=== PATIENT | female | born 1945 | race Caucasian/White ===

== ENCOUNTER → 2017-04-04 | Outpatient (CLI) | payer MEDICARE, OTHER ==
[~2017-04-04] MED LIST: CALC500T54 PO; LOSA25TA4 PO; LOSA50TA2 PO; METR250T PO; MULT-91 PO; NITR100C62 PO; OMEP20TA8 PO
--- NOTE | 2017-04-05 09:53 | RAD ---
EXAM: MAMMO PARMINDER SCREENING BILATERAL. HISTORY: Screening. COMPARISON: 04/03/2016, 03/18/2015, and 01/14/2014. FINDINGS: 2-D and 3-D tomosynthesis mammograms were obtained of both breasts in the CC and MLO projections. Computer-aided detection (CAD) was utilized. The breast parenchyma is heterogeneously dense, which could reduce sensitivity of mammography. Breast parenchyma level C. No dominant suspicious mass, suspicious microcalcifications, or architectural distortion is identified. Scattered, benign-appearing calcifications are present in both breasts. IMPRESSION: No mammographic evidence of malignancy. BI-RADS CATEGORY: 2 BENIGN FINDING RECOMMENDED FOLLOW-UP: 12M 12 MONTH FOLLOW-UP PQRS compliance statement: Patient information was entered into a reminder system with a target due date for the next mammogram. Mammography is a sensitive method for finding small breast cancers, but it does not detect them all and is not a substitute for careful clinical examination. A negative mammogram does not negate a clinically suspicious finding and should not result in delay in biopsying a clinically suspicious abnormality. "Our facility is accredited by the [employer] Mammography [employer]."
== END | disposition home or self-care (01) ==
LOC: MAMMO 12:42
PROVIDERS: ATTEND General Practice
DX: Z12.31 Encounter for screening mammogram for malignant neoplasm of breast (principal)
CPT/HCPCS: 77063; G0202; 77067

== ENCOUNTER → 2017-05-09 | Outpatient (CLI) | payer MEDICARE, OTHER ==
--- NOTE | 2017-05-09 15:14 | RAD ---
Indication wrist pain. Arthritis. Fall. AP lateral and oblique views of the left wrist were obtained as well as a navicular view. No acute finding is seen. There is probable bony demineralization. Significant degenerative changes are not seen particularly given the patient's age
== END | disposition home or self-care (01) ==
LOC: DXRADRC 14:49
PROVIDERS: ATTEND General Practice
DX: S63.502A Unspecified sprain of left wrist, initial encounter (principal); M19.032 Primary osteoarthritis, left wrist; W19.XXXA Unspecified fall, initial encounter; Y93.89 Activity, other specified; Y92.89 Other specified places as the place of occurrence of the external cause; Y99.8 Other external cause status
CPT/HCPCS: 73110

== ENCOUNTER → 2018-04-08 | Outpatient (CLI) | payer MEDICARE, OTHER ==
[~2018-04-08] MED LIST changes: +MULT-223 PO; -MULT-91 PO
--- NOTE | 2018-04-08 11:51 | RAD ---
DATE: 04/08/2018 EXAM: MAMMO PARMINDER SCREENING BILATERAL HISTORY: Routine screening COMPARISON: 04/04/2017 This study was interpreted with the benefit of Computerized Aided Detection (CAD). The breast parenchyma is heterogeneously dense, which could reduce sensitivity of mammography. Breast parenchyma level C. FINDINGS: 2-D and 3-D tomosynthesis imaging was performed in CC and MLO projections. The fibroglandular tissues are heterogeneous and nodular in character. No new or spiculated breast densities are seen. No architectural distortion is evident. Benign type calcifications are present. No suspicious microcalcifications have developed. IMPRESSION: Stable mammograms without evidence of malignancy. BI-RADS CATEGORY: 2 BENIGN FINDING(S) RECOMMENDED FOLLOW-UP: 12M 12 MONTH FOLLOW-UP PQRS compliance statement: Patient information was entered into a reminder system with a target due date for the next mammogram. Mammography is a sensitive method for finding small breast cancers, but it does not detect them all and is not a substitute for careful clinical examination. A negative mammogram does not negate a clinically suspicious finding and should not result in delay in biopsying a clinically suspicious abnormality. "Our facility is accredited by the [employer] Mammography [employer]."
== END | disposition home or self-care (01) ==
LOC: MAMMO 09:28
PROVIDERS: ATTEND General Practice
DX: Z12.31 Encounter for screening mammogram for malignant neoplasm of breast (principal)
CPT/HCPCS: 77063; 77067

== ENCOUNTER → 2019-04-15 | Outpatient (CLI) | payer MEDICARE, OTHER ==
[~2019-04-15] MED LIST changes: +LOSA25TA11 PO; -LOSA25TA4 PO; -LOSA50TA2 PO; +LOSA50TA86 PO; -MULT-223 PO; +MULT-629 PO
--- NOTE | 2019-04-15 14:33 | RAD ---
DATE: 04/15/2019 EXAM: MAMMO PARMINDER SCREENING BILATERAL HISTORY: Routine screening COMPARISON: 04/08/2018 This study was interpreted with the benefit of Computerized Aided Detection (CAD). Breast Density: HETERO The breast parenchyma is heterogenously dense, which could reduce sensitivity of mammography. Breast parenchyma level C. FINDINGS: 2-D and 3-D tomosynthesis imaging was performed in CC and MLO projections. The fibroglandular tissues are heterogeneous and multinodular in character. No new or enlarging breast densities are seen. Benign type calcifications are present. No suspicious microcalcifications have developed. IMPRESSION: Stable mammograms without evidence of malignancy. BI-RADS CATEGORY: 2 BENIGN FINDING(S) RECOMMENDED FOLLOW-UP: 12M 12 MONTH FOLLOW-UP PQRS compliance statement: Patient information was entered into a reminder system with a target due date for the next mammogram. Mammography is a sensitive method for finding small breast cancers, but it does not detect them all and is not a substitute for careful clinical examination. A negative mammogram does not negate a clinically suspicious finding and should not result in delay in biopsying a clinically suspicious abnormality. "Our facility is accredited by the [employer] Mammography [employer]."
== END | disposition home or self-care (01) ==
LOC: MAMMO 11:18
PROVIDERS: ATTEND General Practice
DX: Z12.31 Encounter for screening mammogram for malignant neoplasm of breast (principal); N64.89 Other specified disorders of breast
CPT/HCPCS: 77063; 77067

== ENCOUNTER → 2020-04-26 | Outpatient (CLI) | payer MEDICARE, OTHER ==
--- NOTE | 2020-04-27 12:53 | RAD ---
DATE: 04/26/2020 9:57 AM EXAM: MAMMO PARMINDER SCREENING BILATERAL HISTORY: Screening COMPARISON: 04/15/2019, 04/08/2018 Bilateral CC and MLO views of the breasts were performed. Bilateral breast tomosynthesis was performed in CC and MLO projections. This study was interpreted with the benefit of Computerized Aided Detection (CAD). FINDINGS: Breast Density: HETERO The breast parenchyma Is heterogeneously dense, which could reduce sensitivity of mammography. Breast parenchyma level C No suspicious masses, microcalcifications or architectural distortion is present to suggest malignancy in either breast. The visualized axillae are unremarkable. IMPRESSION: No mammographic evidence of malignancy. BI-RADS CATEGORY: 1 NEGATIVE RECOMMENDED FOLLOW-UP: 12M 12 MONTH FOLLOW-UP Annual screening mammography is recommended, unless clinically indicated sooner based on symptoms or change in physical exam. PQRS compliance statement: Patient information was entered into a reminder system with a target due date 04/27/2021 for the next mammogram. Mammography is a sensitive method for finding small breast cancers, but it does not detect them all and is not a substitute for careful clinical examination. A negative mammogram does not negate a clinically suspicious finding and should not result in delay in biopsying a clinically suspicious abnormality. "Our facility is accredited by the [employer] Mammography [employer]."
== END | disposition home or self-care (01) ==
LOC: MAMMO 09:25
PROVIDERS: ATTEND Internal Medicine Hematology & Oncology
DX: Z12.31 Encounter for screening mammogram for malignant neoplasm of breast (principal)
CPT/HCPCS: 77063; 77067

== ENCOUNTER → 2021-04-28 | Outpatient (CLI) | payer MEDICARE, OTHER ==
--- NOTE | 2021-04-28 15:41 | RAD ---
EXAMINATION: DXA BONE DENSITY AXIAL INDICATION:75 years, Female, postmenopausal. COMPARISON: None. TECHNIQUE: Dual energy x-ray absorptiometry of the lumbar spine and right femur was performed. T-scor e of average bone mineral density based was calculated based on standard deviations above or below th e expected young adult normal value. FINDINGS: * The average bone mineral density associated with L1-L4 is 1.081 g/cm^2, corresponding with a T-sco re of -0.8. * Right femoral neck bone mineral density is 0.767 g/cm^2, corresponding with a T-score of -1.9. Refer to the worksheets for full detail. IMPRESSION: 1. Lumbar spine demonstrates Normal. Average bone mineral density yields a T-score of -1.0 or greater . Fracture risk is low. 2. Right femoral neck demonstrates Osteopenia. Average bone mineral density yields a T-score between -1.0 and -2.5. Fracture risk is increased. Notice: BMD in post menopausal women is classified as normal (T score = -1 or higher), osteopenia (T score = -1.1 to -2.4), or osteoporosis (T score = -2.5 for less), according to criteria established b y the WHO. Electronically signed by: Compa Hernández MD (04/28/2021 3:38 PM) [facility]
--- NOTE | 2021-04-28 15:47 | RAD ---
DATE: 04/28/2021 EXAM: MAMMO PARMINEDR SCREENING BILATERAL HISTORY: Screening COMPARISON: 04/26/2020 04/15/2019 04/08/2018, 04/04/2017, 04/03/2016 This study was interpreted with the benefit of Computerized Aided Detection (CAD). Breast Density: HETERO The breast parenchyma is heterogenously dense, which could reduce sensitivity of mammography. Breast parenchyma level C. FINDINGS: No mass, suspicious calcification, or architectural distortion in either breast. IMPRESSION: No evidence of malignancy. BI-RADS CATEGORY: 1 NEGATIVE RECOMMENDED FOLLOW-UP: 12M 12 MONTH FOLLOW-UP PQRS compliance statement: Patient information was entered into a reminder system with a target due date for the next mammogram. Mammography is a sensitive method for finding small breast cancers, but it does not detect them all and is not a substitute for careful clinical examination. A negative mammogram does not negate a clinically suspicious finding and should not result in delay in biopsying a clinically suspicious abnormality. "Our facility is accredited by the [employer] Mammography Program."
== END ==
LOC: DXRAD 10:52
PROVIDERS: ATTEND Family Medicine
DX: Z12.31 Encounter for screening mammogram for malignant neoplasm of breast (principal); M81.0 Age-related osteoporosis without current pathological fracture; M85.88 Other specified disorders of bone density and structure, other site
CPT/HCPCS: 77063; 77067; 77080

== ENCOUNTER 2021-05-29 13:50 | Emergency (ER) | payer MEDICARE, OTHER ==
[~2021-05-29] VITALS: Ht 160 cm; Wt 70.0 kg
[2021-05-29] MEDS ORDERED: MORPHINE SULFATE 4 MG/ML DISP.SYRIN. IV ONE (14:30)
[2021-05-29] MEDS ORDERED: ONDANSETRON PF 4 MG/2 ML VIAL. IVP ONE ×2 (14:30→17:30)
--- NOTE | 2021-05-29 14:38 | PHYS DOC ---
Past History Past Surgical History: Hysterectomy General Adult EDM: Chief Complaint: ABDOMINAL PAIN HPI: HPI: Patient is a 75 year old female with past surgical history of hysterectomy and right nephrectomy for kidney cancer who presents with right lower quadrant pain. Started last night. Has been constant since. Is sharp. Occasionally radiates to her right flank. Associated with nausea but no vomiting yet. Has had looser stools than usual, but has had several bowel movements today. She states she has mild dysuria that has been ongoing for a while. She just finished a course of nitrofurantoin 3 days ago. Not similar to previous pain. She is vaccinated against covid and denies covid contacts. Review of Systems: Review of Systems: Constitutional: Denies fever or chills Eyes: Denies change in visual acuity HENT: Denies nasal congestion or sore throat Respiratory: Denies cough or shortness of breath Cardiovascular: Denies chest pain or edema GI: + RLQ pain, nausea, diarrhea. No vomiting, bloody stools. : slight dysuria and R flank pain Musculoskeletal: Denies back pain or joint pain Integument: Denies rash Neurologic: Denies headache, focal weakness or sensory changes Endocrine: Denies polyuria or polydipsia Lymphatic: Denies swollen glands Psychiatric: Denies depression or anxiety Allergies: Allergies: Allergies Coded Allergies Type Severity Reaction Last Updated Verified No Known Drug Allergies 09/13/14 No Physical Exam: PE: Constitutional: Well developed, well nourished, no acute distress, non-toxic appearance. [] HENT: Normocephalic, atraumatic, bilateral external ears normal, oropharynx moist, no oral exudates, nose normal. [] Eyes: PERRLA, EOMI, conjunctiva normal, no discharge. [] Neck: Normal range of motion, no tenderness, supple, no stridor. [] Cardiovascular:Heart rate regular rhythm, no murmur [] Lungs & Thorax: Bilateral breath sounds clear to auscultation [] Abdomen:+ RLQ ttp [] Skin: Warm, dry, no erythema, no rash. [] Back: No tenderness, [] Extremities: No tenderness, no cyanosis, no clubbing, ROM intact, no edema. [] Neurologic: Alert and oriented X 3, normal motor function, normal sensory function, no focal deficits noted. [] Psychologic: Affect normal, judgement normal, mood normal. [] EKG: EKG: NA [] Radiology/Procedures: Radiology/Procedures: CT abd/pelvis [] Impressions: [address] [address] IMAGING REPORT Signed PATIENT: GERARDO HAMPTON ACCOUNT: [id number] : 1945 LOCATION: ER AGE: 75 SEX: F EXAM STATUS: REG ER ORD. PHYSICIAN: KIRT RED MD REASON: RLQ pain, radiates to right flank PROCEDURE: CT ABDOMEN PELVIS WO CONTRAST Exam: CT of abdomen and pelvis without contrast INDICATION: Right lower quadrant pain, radiates to flank TECHNIQUE: Sequential axial images through the abdomen and pelvis obtained without IV contrast. Sagittal and coronal reformatted images were reconstructed from the axial data and reviewed. Exposure: One or more of the following in the visualized dose reduction techniques were utilized for this examination: 1. Automated exposure control 2. Adjustment of the MA and/or KV according to patient size 3. Use of iterative of reconstructive technique Comparisons: None FINDINGS: Heart size is normal. No pericardial effusion. Numerous lung nodules noted at the lung bases largest measuring 1.3 cm nodule in the left lower lobe. Liver, spleen, pancreas, gallbladder and adrenals are unremarkable. Right kidney is absent. No perinephric inflammation or hydronephrosis. No renal or ureteral calculi are identified. Bladder is distended and not well evaluated. Uterus is absent. No abnormal adnexal mass. Diverticulosis noted at the sigmoid colon without evidence of acute div erticulitis at the sigmoid colon. Remainder of the large and small bowel are unremarkable. Appendix is normal. No free intra-abdominal air or fluid. No obstruction. Abdominal aorta has a normal course and caliber. There are numerous enlarged retroperitoneal lymph nodes noted, for example in the left periaortic region measuring approximately 4 cm in diameter. No suspicious osseous lesions or acute fractures. IMPRESSION: 1. No enlarged intraperitoneal lymph nodes, concerning for metastatic disease. Correlate with malignancy history. 2. Innumerable pulmonary nodules at the lung bases also concerning for metastatic disease. 3. Normal appendix. No acute process in the right lower quadrant to explain patient's pain. Electronically signed by: Kaylen Gamboa MD (05/29/2021 3:34 PM) [facility] DICTATED AND SIGNED BY: KAYLEN GAMBOA MD DATE: 05/29/21 1526 CC: KIRT RED MD; SAKSHI OROZCO ~MTH0 0 Heart Score: C/O Chest Pain: N/A Risk Factors: Risk Factors: DM, Current or recent (<one month) smoker, HTN, HLP, family history of CAD, obesity. Risk Scores: Score 0 - 3: 2.5% MACE over next 6 weeks - Discharge Home Score 4 - 6: 20.3% MACE over next 6 weeks - Admit for Clinical Observation Score 7 - 10: 72.7% MACE over next 6 weeks - Early Invasive Strategies Course & Med Decision Making: Course & Med Decision Making Pertinent Labs and Imaging studies reviewed. (See chart for details) Patient is 75-year-old female with past medical history of hysterectomy, right nephrectomy for kidney cancer, recurrent UTIs who presents with right lower quadrant pain that radiates to her right flank. She just finished a course of nitrofurantoin for a UTI. On arrival she is afebrile, hemodynamically stable. She is slightly uncomfortable appearing and has RLQ focal tenderness on exam. Will obtain UA to evaluate for persistent infection, CBC, CMP, and a CT abdomen/pelvis. Due to her single kidney she was told not to have IV contrast, so will have a noncontrast study today. DDx includes pyelonephritis, appy, less likely kidney stone since she has no R kidney, no hernia on exam but is also possible. 1438 No evidence of urinary tract infection on UA. CBC and CMP largely unremarkable. CT abdomen/pelvis also without acute cause of pain. Does show lymphadenopathy that the patient is aware of as well as diverticulosis of the patient is aware of. At this time I don't have a good reason for her abdominal discomfort. She is feeling better after analgesics. We'll give a dose of [place], and p.o. challenge. She does have a PCP that she can follow-up with tomorrow. I discussed return precautions for worsening symptoms. Serafin Disclaimer: Serafin Disclaimer: This electronic medical record was generated, in whole or in part, using a voice recognition dictation system. Departure Departure: Impression: Primary Impression: Right flank pain Disposition: HOME / SELF CARE / HOMELESS Condition: STABLE Referrals: SAKSHI OROZCO (PCP) Schedule appointment with your PCP for tomorrow Additional Instructions: We unfortunately did not find a cause for your abdominal pain. Your labs and CT scans were reassuring. There is a chance that we saw you too early in the process to be able to find out what exactly was going on. For this reason it will be important that you follow-up with your primary care doctor tomorrow. If your pain worsens, you have inability to keep yourself hydrated, you have fever/chills, or other new/concerning symptoms arise please return to the emergency department for reevaluation. Scripts Hydrocodone Bit/Acetaminophen (HYDROCODONE-APAP 5-325 ) 1 Each Tablet 1 TAB PO PRN Q6HRS PRN for PAIN, #5 TAB 0 Refills Prov: KIRT ERD MD 05/29/21 KIRT RED MD May 29, 2021 14:38
[2021-05-29 15:03] LABS: BACTERIA,URINE 0 /HPF (0-FEW); BILIRUBIN,URINE NEG (NEG); CLARITY,URINE CLEAR; COLOR,URINE YELLOW; GLUCOSE,URINE NEG (NEG); NITRITE,URINE NEG (NEG); SQUAMOUS EPITHELIAL CELL,UR FEW /LPF; UROBILINOGEN,URINE 0.2 mg/dL (0.2 mg/dL); WBC,URINE 0 /HPF (0-4)
[2021-05-29 15:21] LABS: BASO # 0.1 x10^3/uL (0.0-0.2); BASO % 1 % (0-3); EOS # 0.1 x10^3/uL (0.0-0.7); EOS % 2 % (0-3); HEMATOCRIT 35.2 % (36.0-47.0); HEMOGLOBIN 12.2 g/dL (12.0-15.5); LYMPH # 0.8 x10^3/uL (1.0-4.8); LYMPH % 8 % (24-48); MEAN CORPUSCULAR HEMOGLOBIN 32 pg (25-35); MEAN CORPUSCULAR HGB CONC 35 g/dL (31-37); MEAN CORPUSCULAR VOLUME 91 fL (79-100); MONO # 0.7 x10^3/uL (0.0-1.1); MONO % 8 % (0-9); NEUT # 7.4 x10^3uL (1.8-7.7); NEUT % 81 % (31-73); PLATELET COUNT 208 x10^3/uL (140-400); RED BLOOD COUNT 3.89 x10^6/uL (3.50-5.40); RED CELL DISTRIBUTION WIDTH 12.2 % (11.5-14.5); WHITE BLOOD COUNT 9.1 x10^3/uL (4.0-11.0)
[2021-05-29 15:32] LABS: CALCIUM 8.8 mg/dL (8.5-10.1); CREATININE 0.9 mg/dL (0.6-1.0); GFR 60.9; POTASSIUM 3.7 mmol/L (3.5-5.1)
--- NOTE | 2021-05-29 15:36 | RAD ---
Exam: CT of abdomen and pelvis without contrast INDICATION: Right lower quadrant pain, radiates to flank TECHNIQUE: Sequential axial images through the abdomen and pelvis obtained without IV contrast. Sagit suri and coronal reformatted images were reconstructed from the axial data and reviewed. Exposure: One or more of the following in the visualized dose reduction techniques were utilized for this examination: 1. Automated exposure control 2. Adjustment of the MA and/or KV according to patient size 3. Use of iterative of reconstructive technique Comparisons: None FINDINGS: Heart size is normal. No pericardial effusion. Numerous lung nodules noted at the lung bases largest measuring 1.3 cm nodule in the left lower lobe. Liver, spleen, pancreas, gallbladder and adrenals are unremarkable. Right kidney is absent. No perinephric inflammation or hydronephrosis. No renal or ureteral calculi a re identified. Bladder is distended and not well evaluated. Uterus is absent. No abnormal adnexal mass. Diverticulosis noted at the sigmoid colon without evidence of acute diverticulitis at the sigmoid col on. Remainder of the large and small bowel are unremarkable. Appendix is normal. No free intra-abdomi nal air or fluid. No obstruction. Abdominal aorta has a normal course and caliber. There are numerous enlarged retroperitoneal lymph nodes noted, for example in the left periaortic reg ion measuring approximately 4 cm in diameter. No suspicious osseous lesions or acute fractures. IMPRESSION: 1. No enlarged intraperitoneal lymph nodes, concerning for metastatic disease. Correlate with malign jolene history. 2. Innumerable pulmonary nodules at the lung bases also concerning for metastatic disease. 3. Normal appendix. No acute process in the right lower quadrant to explain patient's pain. Electronically signed by: Kaylen Padgett MD (05/29/2021 3:34 PM) [facility]
[2021-05-29 15:38] LABS: ALBUMIN 3.7 g/dL (3.4-5.0); ALBUMIN/GLOBULIN RATIO 1.1 (1.0-1.7); TOTAL BILIRUBIN 0.8 mg/dL (0.2-1.0); TOTAL PROTEIN 7.2 g/dL (6.4-8.2)
[2021-05-29 17:29] VITALS: BP 155/80
[2021-05-29] MEDS ORDERED: HYDROcodone/APAP 5/325MG 1 TAB TABLET PO ONE (17:30)
[2021-05-29] MEDS ORDERED: HYDR-2155 PO (18:01)
== END 2021-05-29 18:02 | disposition home or self-care (01) ==
LOC: ER 13:50
DX: R10.31 Right lower quadrant pain (principal); R11.0 Nausea; R30.0 Dysuria; R19.7 Diarrhea, unspecified; Z90.710 Acquired absence of both cervix and uterus; Z90.5 Acquired absence of kidney
CPT/HCPCS: 36415; 74176; 80053; 81001; 83690; 85025; 96374; 96375; 96376; 99285; J2270; J2405